=== PATIENT | female | born 1990 | race Caucasian/White ===

== ENCOUNTER 2020-06-07 17:49 | Inpatient (IN) ==
[2020-06-07] MEDS ORDERED: Lactated Ringers 1000 ml BAG 1,000 ML IV ONE (18:04)
[2020-06-07] MEDS ORDERED: Dinoprostone 10 MG VAG.SUPP VAGINAL ONE (18:04)
[2020-06-07] MEDS ORDERED: Buffered Lidocaine 1% SYRIN 1 ml INTRADERM ONE (18:04)
[2020-06-07 20:26] LABS: Urine Benzodiazepine Screen None Detected (None Detect); Urine Cannabinoids Screen None Detected (None Detect); Urine Opiates Screen None Detected (None Detect)
[2020-06-09] MEDS ORDERED: Oxytocin in LR 20 UNITS/1,000 ML BAG IVPB SCH (01:00)
[2020-06-09 01:52] LABS: ABS Eosinophils 0.3 10^3/ul (0-0.6); ABS Lymphocytes 2.7 10^3/ul (1.0-4.8); ABS Monocytes 0.6 10^3/ul (0-0.8); ABS Neutrophils 8.2 10^3/ul (1.5-7.7); Eosinophil % 2.5 %; Hematocrit 33 % (35-47); Hemoglobin 11.4 g/dL (12.0-16.0); Lymphocyte % 22.8 %; Mean Corpuscular HGB Conc 34 g/dL (31-36); Mean Corpuscular Hemoglobin 30 pg (27-31); Mean Corpuscular Volume 88 fL (80-97); Mean Platelet Volume 9.6 fL (7.4-10.4); Nucleated Red Blood Cells % 0.1; Platelet Count 249 10^3/uL (150-450); Red Cell Distribution Width 13 % (10-15); White Blood Count 11.9 10^3/uL (3.5-10.8)
[2020-06-09] MEDS: Lactated Ringers 1000 ml BAG 1,000 ML IV SCH ×2 (08:13→11:31)
[2020-06-09] MEDS ORDERED: Morphine 10 MG/ML VIAL (1 ml) IV ONE (09:09)
[2020-06-09] MEDS ORDERED: Promethazine INJ(RESTRICTED) 25 MG/ML 1 ml VIAL IV ONE (09:10)
[2020-06-09] MEDS ORDERED: OBEPIDURAL 250 ML EPIDURAL ONE (10:44)
[2020-06-09] MEDS ORDERED: Lactated Ringers 1000 ml BAG 1,000 ML IV ONE (11:48)
[2020-06-09] MEDS ORDERED: Sodium Citrate/Citric Acid LIQ 15 ML UDC PO PRN (11:48)
[2020-06-09] MEDS ORDERED: Lactated Ringers 1000 ml BAG 500 ML IV PRN ×2 (11:48)
[2020-06-09] MEDS ORDERED: Phenylephrine 40 mcg/mL 10mL (400mcg) SYRINGE IV PUSH PRN ×2 (11:48)
[2020-06-09] MEDS ORDERED: EPHEDrine (Pressors) 50 MG/ML VIAL IV PUSH PRN ×2 (11:48)
[2020-06-09] MEDS ORDERED: OBEPIDURAL 250 ML EPIDURAL SCH (12:00)
[2020-06-09] MEDS ORDERED: Lactated Ringers 1000 ml BAG 1,000 ML IV SCH (12:00)
[2020-06-10] MEDS ORDERED: fentaNYL 100 mcg/2 ml 50 MCG/ML VIAL ONE (09:06)
[2020-06-10] MEDS: Lactated Ringers 1000 ml BAG 1,000 ML IV SCH (10:27)
[2020-06-10] MEDS ORDERED: Dibucaine 1% OINT 28.35 GM TUBE PR PRN (13:16)
[2020-06-10] MEDS ORDERED: Witch Hazel PAD JAR TOPICAL PRN (13:16)
[2020-06-10] MEDS ORDERED: Lidocaine 1% VIAL 10 MG/ML VIAL ONE (13:55)
[2020-06-10] MEDS ORDERED: Lactated Ringers 1000 ml BAG 1,000 ML IV SCH (14:00)
[2020-06-11 06:49] LABS: ABS Eosinophils 0.1 10^3/ul (0-0.6); ABS Lymphocytes 2.9 10^3/ul (1.0-4.8); ABS Monocytes 0.9 10^3/ul (0-0.8); Eosinophil % 0.5 %; Hematocrit 30 % (35-47); Hemoglobin 9.7 g/dL (12.0-16.0); Lymphocyte % 16.9 %; Mean Corpuscular HGB Conc 33 g/dL (31-36); Mean Corpuscular Hemoglobin 30 pg (27-31); Mean Corpuscular Volume 89 fL (80-97); Mean Platelet Volume 9.2 fL (7.4-10.4); Platelet Count 193 10^3/uL (150-450); Red Cell Distribution Width 13 % (10-15); White Blood Count 16.9 10^3/uL (3.5-10.8)
[2020-06-12] MEDS ORDERED: Dibucaine 1% OINT 28.35 GM TUBE ONE (07:43)
[2020-06-12 16:25] VITALS: BP 147/72
== END 2020-06-12 18:39 | disposition home or self-care (01) | DRG 560 ==
LOC: MCHOBOUT 17:49 → MCHOB 18:54
PROVIDERS: ADMIT Obstetrics & Gynecology; ATTEND Obstetrics & Gynecology